=== PATIENT | female | born 1960 | race Caucasian/White ===

== ENCOUNTER 2025-03-05 16:15 | Inpatient (IN) | payer BC ==
[~2025-03-05] VITALS: Ht 165.1 cm; Wt 77.1 kg
[~2025-03-05 16:15] MED LIST: CYCLOBENZAPRINE10 MG; ESCITALOPRAM OX10 MG; HYDROCODON-ACE1 EAC9
[2025-03-05 17:48] VITALS: TEMP 98.6
[2025-03-05 19:27] LABS: BASOPHILS % 0.8 % (0.0-1.0); EOSINOPHILS % 3.1 % (0.0-6.0); LYMPHOCYTES % 24.7 % (18.0-39.1); MONOCYTES % 8.9 % (4.4-11.3); NEUTROPHILS % 62.2 % (38.7-80.0); RED CELL DISTRIBUTION WIDTH 12.7 % (11.7-14.4)
[2025-03-05 19:51] LABS: EST GLOMERULAR FILTRATION RATE 97 ML/MIN (>=60)
[2025-03-05] MEDS ORDERED: IOPAMIDOL 370 MG/ML 100 ML INFUS..BTL INJ ONE (20:40)
[2025-03-05 23:00] VITALS: PULSE 77; RESP 17
[2025-03-06] VITALS (8 sets, daily range): BP systolic 102–169; BP diastolic 70–96; PULSE 76–82; RESP 18–21; TEMP 97.8–98.6; O2SAT 97–99
[2025-03-06] MEDS: SODIUM CHLORIDE 0.9% 1000ML 1,000 ML IV SCH (00:24)
[2025-03-06] MEDS: Morphine 4mg INJECTION 4 MG/ML INJ IV PRN (00:30)
[2025-03-06] MEDS: ONDANSETRON HCL INJ 2MG/ML 2ML 2 MG/ML VIAL IV PRN (00:31)
[2025-03-06] MEDS ORDERED: ULTRAM 50MG50 MG PO (00:41)
[2025-03-06] MEDS ORDERED: LOSARTAN-HCTZ1 EACH PO (00:41)
[2025-03-06] MEDS ORDERED: TIZANIDINE HCL4 MG PO (00:41)
[2025-03-06] MEDS ORDERED: GABAPENTIN100 MG PO (00:41)
[2025-03-06] MEDS ORDERED: LINZESS290 MCG PO (00:48)
[2025-03-06 05:01] LABS: BASOPHILS % 0.9 % (0.0-1.0); EOSINOPHILS % 4.6 % (0.0-6.0); LYMPHOCYTES % 28.7 % (18.0-39.1); MONOCYTES % 9.8 % (4.4-11.3); NEUTROPHILS % 55.8 % (38.7-80.0); RED CELL DISTRIBUTION WIDTH 12.8 % (11.7-14.4)
[2025-03-06 05:33] LABS: EST GLOMERULAR FILTRATION RATE 99.0 ML/MIN (>=60)
[2025-03-06] MEDS ORDERED: GADOBENATE DIMEGLUMINE 1 ML IV ONE (10:23)
[2025-03-06] MEDS ORDERED: IOPAMIDOL 370 MG/ML 100 ML INFUS..BTL INJ ONE (11:30)
[2025-03-06] MEDS: DEXAMETHASONE 4 MG TAB PO SCH (13:44)
[2025-03-06] MEDS: ENOXAPARIN SODIUM INJ 100 MG/ML SYR SC SCH (20:37)
[2025-03-06] MEDS: DOCUSATE SODIUM 100 MG CAP PO PRN (20:37)
[2025-03-07] MEDS ORDERED: DEXAMETHASONE 4 MG TAB PO SCH
== END 2025-03-06 22:45 | disposition short-term general hospital (02) | DRG 844 ==
LOC: ER 17:34 → ERHOLD 22:55 → MED/SURG 23:55
PROVIDERS: ADMIT Family Medicine; ATTEND Family Medicine
DX: C79.89 Secondary malignant neoplasm of other specified sites (principal); M84.58XA Pathological fracture in neoplastic disease, other specified site, initial encounter for fracture; C79.51 Secondary malignant neoplasm of bone; G89.3 Neoplasm related pain (acute) (chronic); N61.0 Mastitis without abscess; R00.1 Bradycardia, unspecified; I10 Essential (primary) hypertension; Z85.3 Personal history of malignant neoplasm of breast; Z90.13 Acquired absence of bilateral breasts and nipples; Z80.3 Family history of malignant neoplasm of breast; Z82.49 Family history of ischemic heart disease and other diseases of the circulatory system; Z92.21 Personal history of antineoplastic chemotherapy
CPT/HCPCS: 36415; 71260; 72156; 72157; 72158; 74177; 74470; 80053; 82550; 83690; 83880; 84484; 85025; 86300; 93005; 93971; 99284; J1650; J2270; J2405; J7030; Q9967